=== PATIENT | female | born 1985 | race Caucasian/White ===

== ENCOUNTER 2017-06-26 10:17 | Emergency (ER) | payer OTHER ==
[~2017-06-26] VITALS: Ht 157.5 cm; Wt 55.0 kg
[~2017-06-26 10:17] MED LIST: ACYC400T PO; ATOM60 PO; BUSP5TAB3 PO; VIST25CA PO
[2017-06-26 10:20] VITALS: BP 131/72; PULSE 119; RESP 16; TEMP 98.2; O2SAT 98
[2017-06-26] MEDS ORDERED: KLON2TAB PO (10:26)
[2017-06-26] MEDS ORDERED: KETOROLAC TROMETHAMINE 60 MG/2 ML (IM) VIAL IM ONE (11:15)
[2017-06-26] MEDS ORDERED: MELO15TA20 PO (11:16)
[2017-06-26] MEDS ORDERED: CLIN300C5 PO (11:16)
--- NOTE | 2017-06-26 11:17 | PD ---
HPI Chief Complaint: Skin Problem Time Seen by Provider: 10:40 Travel History International Travel<30 days: No Contact w/Intl Traveler<30days: No Traveled to known affect area: No History of Present Illness HPI 32-year-old female here with abscess to the right chest wall since 4 days. She reports previous history of abscesses past with similar symptoms.. She denies fever or chills. She reports the area started as a small pimple-like lesion and has become larger and more red over the last several days. She denies drainage from the nipple or change in the size or shape of the breast. Symptom severity is moderate. No aggravating or alleviating factors. PFSH Past Medical History Hx Anticoagulant Therapy: No ADHD: Yes Bipolar Disorder: Yes (manic) Anxiety: Yes Cardiovascular Problems: No Diabetes: No Diminished Hearing: No Hepatitis: Yes (C) Thyroid Disease: Yes Tetanus Vaccination: Unknown ?: Not : 3 Para: 3 Past Surgical History Cholecystectomy: Yes (2010) Social History Alcohol Use: Yes (Every other day. 6 pack) Tobacco Use: Yes (/2 ppd) Substance Use: No (marijuana, benzos) Allergies-Medications (Allergen,Severity, Reaction): Coded Allergies: No Known Allergies (Unverified Adverse Reaction, Unknown, 06/26/17) Reported Meds & Prescriptions Reported Meds & Active Scripts Active Meloxicam 15 Mg Tab 15 Mg PO DAILY Clindamycin (Clindamycin HCl) 300 Mg Cap 300 Mg PO Q6H 10 Days Reported Klonopin (Clonazepam) 2 Mg Tab 2 Mg PO BID Review of Systems Except as stated in HPI: all other systems reviewed are Neg General / Constitutional: No: Fever Physical Exam Narrative GENERAL: Alert, nontoxic well-appearing female. SKIN: Warm and dry. Right breast 4 x 4 centimeters area of erythema with central fluctuance measuring 1 cm diameter. HEAD: Normocephalic. EYES: No injection or drainage. NECK: Supple, trachea midline. No JVD or lymphadenopathy. BREAST: Right breast 4 x 4 centimeters area of erythema with central fluctuance measuring 1 cm diameter. No nipple inversion or discharge. CARDIOVASCULAR: Regular rate and rhythm. Mildly tachycardic heart rate 106 RESPIRATORY: Breath sounds equal bilaterally. No accessory muscle use. GASTROINTESTINAL: Abdomen soft, non-tender, nondistended. Data Data Last Documented VS Vital Signs Date Time Temp Pulse Resp B/P (MAP) Pulse Ox O2 Delivery O2 Flow Rate FiO2 06/26/17 10:20 98.2 119 16 131/72 (91) 98 Orders Orders Ketorolac Inj (Toradol Inj) (06/26/17 11:15) [facility] Medical Decision Making Medical Screen Exam Complete: Yes Emergency Medical Condition: Yes Differential Diagnosis Abscess, cellulitis, mastitis Narrative Course 32 -year-old female here with a small right breast abscess which is superficial in nature. She is nontoxic-appearing. She is mildly tachycardic this is likely due to her pain. She is afebrile. Denies fever or chills. Incision and drainage performed. Patient tolerated procedure well. Patient we put on clindamycin and instructed to follow-up with her PCP. Return precautions were discussed. Procedures Procedure Narrative INCISION AND DRAINAGE OF ABSCESS: The area was prepped and was sterilely draped. A subcutaneous wheal of 1 % Xylocaine [with epi] with a total number [1 ] mL was used to anesthetize the area properly. A number [11] scalpel was used to make a [0.5] -cm incision across the area of the abscess. The abscess was drained, complex loculations were broken down, and irrigated with normal saline. Cultures were obtained. Quarter inch iodoform packing was placed in the wound. Sterile dressing applied. Patient advised to have packing removed in two days. Diagnosis Primary Impression: Abscess of right breast unrelated to or Referrals: Primary Care Physician Additional Instructions: The packing should be removed in 2 days. Take the antibiotics as prescribed. Follow-up the primary doctor for recheck. He developed new or worsening symptoms Scripts Meloxicam (Meloxicam) 15 Mg Tab 15 MG PO DAILY for Arthritis Pain, #30 TAB 0 Refills Prov: Beryl Calixto 06/26/17 Clindamycin (Clindamycin) 300 Mg Cap 300 MG PO Q6H for Infection for 10 Days, #40 CAP 0 Refills Prov: Beryl Calixto 06/26/17 Disposition: 01 DISCHARGE HOME Condition: Stable Beryl Calixto Jun 26, 2017 11:17
== END 2017-06-26 11:26 | disposition home or self-care (01) ==
LOC: PHEFT 10:17
DX: L02.213 Cutaneous abscess of chest wall (principal); R00.0 Tachycardia, unspecified; F90.9 Attention-deficit hyperactivity disorder, unspecified type; F31.9 Bipolar disorder, unspecified; F41.9 Anxiety disorder, unspecified; E07.9 Disorder of thyroid, unspecified; F17.200 Nicotine dependence, unspecified, uncomplicated; Z86.19 Personal history of other infectious and parasitic diseases; Z79.899 Other long term (current) drug therapy
CPT/HCPCS: 10061; 96372; 99284; J1885

== ENCOUNTER 2017-06-29 15:30 | Inpatient (IN) | payer OTHER ==
[~2017-06-29] VITALS: Ht 157.5 cm; Wt 65.1 kg
[~2017-06-29 15:30] MED LIST changes: -ACYC400T PO; -ATOM60 PO; -BUSP5TAB3 PO; +CLIN300C5 PO; +KLON2TAB PO; +MELO15TA20 PO; -VIST25CA PO
[2017-06-29 15:37] VITALS: BP 135/79; PULSE 90; RESP 16; TEMP 98.6; O2SAT 99
[2017-06-29] MEDS ORDERED: KETOROLAC TROMETHAMINE 30 MG/ML (IVP) VIAL IV PUSH ONE (17:00)
--- NOTE | 2017-06-29 17:03 | PD ---
HPI Chief Complaint: Wound/Suture/Staple Re-Check Time Seen by Provider: 16:31 Travel History International Travel<30 days: No Contact w/Intl Traveler<30days: No Traveled to known affect area: No History of Present Illness HPI 32-year-old female here with right breast abscess. She was seen and underwent incision and drainage on 06/26/17 for superficial breast abscess. Since that time she's had fever and chills. She reports increasing pain, redness, swelling of the breast. Reports compliance with the clindamycin. Symptom severity is moderate. No aggravating or alleviating factors. PFSH Past Medical History Hx Anticoagulant Therapy: No ADHD: Yes Bipolar Disorder: Yes (manic) Anxiety: Yes Cardiovascular Problems: No Diabetes: No Diminished Hearing: No Hepatitis: Yes (C) Thyroid Disease: Yes Tetanus Vaccination: Unknown ?: Not LMP: 06/01/17 : 3 Para: 3 Past Surgical History Cholecystectomy: Yes (2010) Social History Alcohol Use: Yes (Every other day. 6 pack) Tobacco Use: Yes (/2 ppd) Substance Use: No (marijuana, benzos) Allergies-Medications (Allergen,Severity, Reaction): Coded Allergies: No Known Allergies (Unverified Adverse Reaction, Unknown, 06/29/17) Reported Meds & Prescriptions Reported Meds & Active Scripts Active Clindamycin (Clindamycin HCl) 300 Mg Cap 300 Mg PO Q6H 10 Days Reported Klonopin (Clonazepam) 2 Mg Tab 2 Mg PO BID Review of Systems Except as stated in HPI: all other systems reviewed are Neg General / Constitutional: Positive: Fever, Chills Physical Exam Narrative GENERAL: Alert female and no distress. Nontoxic appearing SKIN: erythema, warmth, swelling to the right breast HEAD: Normocephalic. EYES: No scleral icterus. No injection or drainage. NECK: Supple, trachea midline. No JVD or lymphadenopathy. Breast: Notable erythema, induration, warmth, swelling to the right breast. No axillary lymphadenopathy. CARDIOVASCULAR: Regular rate and rhythm without murmurs, gallops, or rubs. RESPIRATORY: Breath sounds equal bilaterally. No accessory muscle use. GASTROINTESTINAL: Abdomen soft, non-tender, nondistended. MUSCULOSKELETAL: No cyanosis, or edema. BACK: Nontender without obvious deformity. No CVA tenderness. Data Data Last Documented VS Vital Signs Date Time Temp Pulse Resp B/P (MAP) Pulse Ox O2 Delivery O2 Flow Rate FiO2 06/29/17 18:40 90 16 136/80 (98) 100 Room Air 06/29/17 15:37 98.6 Orders Orders Basic Metabolic Panel (Bmp) (06/29/17 16:54) Complete Blood Count With Diff (06/29/17 16:54) Blood Culture (06/29/17 16:54) Wound Culture And Gram Stain (06/29/17 16:54) Iv Access Insert/Monitor (06/29/17 16:54) Us Breast Unilateral (06/29/17 ) Ketorolac Inj (Toradol Inj) (06/29/17 17:00) Ed Urine Pregnancytest Poc (06/29/17 16:58) Lactic Acid Sepsis Protocol (06/29/17 17:04) Vancomycin Inj (Vancomycin Inj) (06/29/17 20:00) Labs Laboratory Tests Test 06/29/17 18:33 White Blood Count 12.7 TH/MM3 Red Blood Count 4.32 MIL/MM3 Hemoglobin 13.3 GM/DL Hematocrit 38.7 % Mean Corpuscular Volume 89.6 FL Mean Corpuscular Hemoglobin 30.8 PG Mean Corpuscular Hemoglobin Concent 34.4 % Red Cell Distribution Width 11.9 % Platelet Count 212 TH/MM3 Mean Platelet Volume 7.9 FL Neutrophils (%) (Auto) 83.3 % Lymphocytes (%) (Auto) 12.8 % Monocytes (%) (Auto) 3.4 % Eosinophils (%) (Auto) 0.3 % Basophils (%) (Auto) 0.2 % Neutrophils # (Auto) 10.7 TH/MM3 Lymphocytes # (Auto) 1.6 TH/MM3 Monocytes # (Auto) 0.4 TH/MM3 Eosinophils # (Auto) 0.0 TH/MM3 Basophils # (Auto) 0.0 TH/MM3 CBC Comment DIFF FINAL Differential Comment Blood Urea Nitrogen 6 MG/DL Creatinine 0.59 MG/DL Random Glucose 125 MG/DL Calcium Level 8.7 MG/DL Sodium Level 139 MEQ/L Potassium Level 3.7 MEQ/L Chloride Level 106 MEQ/L Carbon Dioxide Level 25.9 MEQ/L Anion Gap 7 MEQ/L Estimat Glomerular Filtration Rate 117 ML/MIN Lactic Acid Level 1.4 mmol/L MDM Medical Decision Making Medical Screen Exam Complete: Yes Emergency Medical Condition: Yes Interpretation(s) Urine : negative CBC: WBC 12.7 BMP: Unremarkable Lactic: 1.4 Ultrasound right breast: Diffuse cellulitis small phlegmonous organizing collection although discrete abscess is not present at this time. Differential Diagnosis Oral antibiotic outpatient treatment failure, right breast abscess, right breast cellulitis Narrative Course 32-year-old female here with right breast cellulitis not responding to oral clindamycin. Reporting subjective fever and chills. IV access established, labs ordered and pending, IV vancomycin administered. Diagnosis Primary Impression: Failure of outpatient treatment Additional Impression: Cellulitis of right breast Beryl Calixto Jun 29, 2017 17:03
--- NOTE | 2017-06-29 18:19 | RADRPT ---
EXAM DATE/TIME: 06/29/2017 17:54 [facility] COMPARISON: No previous studies available for comparison. INDICATIONS : Right breast abscess. MEDICAL HISTORY : Thyroid disease. Herpes. Bipolar disorder. Substance use. Hepatitis C. SURGICAL HISTORY : Cholecystectomy. ENCOUNTER: Initial ACUITY: 4-6 days PAIN SCORE: 8/10 LOCATION: Right breast. FINDINGS: Ultrasound examination demonstrates overall diffuse soft tissue edema adjacent to area of concern. Th ere is also associated increased vascularity. There is an ill-defined hypoechoic subcutaneous collect ion at the 2: 00 position approximately 3 cm from the nipple. CONCLUSION: 1. Diffuse cellulitis with ill-defined hypoechoic subcutaneous collection at the 2: 2. 00 position approximately 3 cm from the nipple. This is consistent with a small phlegmonous organi zing collection although a discrete abscess is not present at this time. Sb Cardona MD on June 29, 2017 at 18:15 Board Certified Radiologist. This report was verified electronically.
--- NOTE | 2017-06-29 18:34 | PD ---
Physical Exam Date Seen by Provider: Jun 29, 2017 Data Data Last Documented VS Vital Signs Date Time Temp Pulse Resp B/P (MAP) Pulse Ox O2 Delivery O2 Flow Rate FiO2 06/29/17 15:37 98.6 90 16 135/79 (97) 99 Orders Orders Basic Metabolic Panel (Bmp) (06/29/17 16:54) Complete Blood Count With Diff (06/29/17 16:54) Blood Culture (06/29/17 16:54) Wound Culture And Gram Stain (06/29/17 16:54) Iv Access Insert/Monitor (06/29/17 16:54) Us Breast Unilateral (06/29/17 ) Ketorolac Inj (Toradol Inj) (06/29/17 17:00) Ed Urine Pregnancytest Poc (06/29/17 16:58) Lactic Acid Sepsis Protocol (06/29/17 17:04) Vascular Access Team Consult/P PRN (06/29/17 17:20) Vascular Poc Ultrasound (06/29/17 ) MDM Medical Record Reviewed: Yes Supervised Visit with CHENG: Yes Narrative Course I, Dr. Poe, have reviewed the advance practice practitioner's documentation and am in agreement, met with the patient face to face, made the diagnosis, and the medical decision making was done by me. *My assessment and Findings: Breast abscess with cellulitis - failed outpatient treatment. Patient will require admission for IV antibiotics. Procedures Procedure Narrative Emergency department US guided peripheral IV was performed with patient consent. Linear probe was used in the transverse views of the peripheral vein to assist with vascular access. I was able to obtain a 20-gauge IV access to the right antecubital vein Ines Poe DO Jun 29, 2017 18:34
[2017-06-29 18:40] VITALS: BP 136/80; PULSE 90; RESP 16; O2SAT 100
[2017-06-29 18:48] LABS: AUTOMATED NEUTROPHIL # 10.7 TH/MM3 (1.8-7.7); BASOPHIL % 0.2 % (0.0-2.0); EOSINOPHIL % 0.3 % (0.0-4.0); HEMATOCRIT 38.7 % (35.0-46.0); HEMOGLOBIN 13.3 GM/DL (11.6-15.3); LYMPH % 12.8 % (9.0-44.0); LYMPHOCYTE # 1.6 TH/MM3 (1.0-4.8); MEAN CELL VOLUME 89.6 FL (80.0-100.0); MEAN CORPUSCULAR HEMOGLOBIN 30.8 PG (27.0-34.0); MEAN CORPUSCULAR HGB CONC 34.4 % (32.0-36.0); MEAN PLATELET VOLUME 7.9 FL (7.0-11.0); MONO % 3.4 % (0.0-8.0); MONOCYTE # 0.4 TH/MM3 (0-0.9); NEUT % 83.3 % (16.0-70.0); PLATELET COUNT 212 TH/MM3 (150-450); RED BLOOD COUNT 4.32 MIL/MM3 (4.00-5.30); RED CELL DISTRIBUTION WIDTH 11.9 % (11.6-17.2); WHITE BLOOD COUNT 12.7 TH/MM3 (4.0-11.0)
[2017-06-29 19:10] LABS: BICARBONATE 25.9 MEQ/L (21.0-32.0); CALCIUM 8.7 MG/DL (8.5-10.1)
[2017-06-29 19:14] LABS: CREATININE 0.59 MG/DL (0.50-1.00)
[2017-06-29] MEDS ORDERED: VANCOMYCIN INJ 850 MG in SODIUM CHLOR 0.9% 250 ML INJ 250 ML IV ONE (19:15)
[2017-06-29 20:00] VITALS: BP 126/78; PULSE 83; RESP 16; TEMP 98.2; O2SAT 100
[2017-06-29] MEDS ORDERED: oxyCODONE/ACETAMINOPHEN 5 MG/325 MG TAB PO ONE (20:00)
[2017-06-29] MEDS ORDERED: VANCOMYCIN 1,000 MG/NS 250 ML IV ONE ×2 (20:00)
[2017-06-29] MEDS ORDERED: SENNOSIDES 8.6 MG TAB PO PRN (20:15)
[2017-06-29] MEDS ORDERED: BISACODYL 10 MG SUPP RECTAL PRN (20:15)
[2017-06-29] MEDS ORDERED: NALOXONE HCL 0.4 MG/ML AMP IV PUSH PRN (20:15)
[2017-06-29] MEDS ORDERED: ONDANSETRON HCL 4 MG/2 ML VIAL IVP PRN (20:15)
[2017-06-29] MEDS ORDERED: ACETAMINOPHEN 325 MG TAB PO PRN (20:15)
[2017-06-29] MEDS ORDERED: Vancomycin Consult Pharmacy 1 EA OTHER SCH (20:15)
[2017-06-29 21:05] VITALS: BP 136/75
[2017-06-29] MEDS ORDERED: diphenhydrAMINE HCL 50 MG CAP PO PRN (22:45)
[2017-06-29] MEDS: oxyCODONE/ACETAMINOPHEN 7.5 MG/325 MG TAB PO PRN (23:05)
[2017-06-29] MEDS: PIPERACIL-TAZO 3.375 GM PREMIX 50 ML IV SCH (23:05)
[2017-06-29] MEDS: SODIUM CHLORIDE 0.9% FLUSH 10 ML FLUSH IV FLUSH SCH (23:06)
[2017-06-30] VITALS: BP 122/78; PULSE 85; RESP 16; TEMP 98.2; O2SAT 99
[2017-06-30] MEDS: PIPERACIL-TAZO 3.375 GM PREMIX 50 ML IV SCH ×4 (03:02→21:13)
[2017-06-30] MEDS: oxyCODONE/ACETAMINOPHEN 7.5 MG/325 MG TAB PO PRN ×5 (03:02→21:13)
[2017-06-30] MEDS: SODIUM CHLORIDE 0.9% FLUSH 10 ML FLUSH IV FLUSH PRN ×2 (03:02→21:13)
[2017-06-30] MEDS: clonazePAM 0.5 MG TAB PO PRN ×3 (04:12→21:12)
[2017-06-30 06:37] LABS: AUTOMATED NEUTROPHIL # 5.6 TH/MM3 (1.8-7.7); BASOPHIL % 0.3 % (0.0-2.0); EOSINOPHIL # 0.1 TH/MM3 (0-0.4); EOSINOPHIL % 1.6 % (0.0-4.0); HEMOGLOBIN 12.4 GM/DL (11.6-15.3); LYMPH % 26.3 % (9.0-44.0); LYMPHOCYTE # 2.2 TH/MM3 (1.0-4.8); MEAN CELL VOLUME 89.5 FL (80.0-100.0); MEAN CORPUSCULAR HEMOGLOBIN 30.8 PG (27.0-34.0); MEAN CORPUSCULAR HGB CONC 34.4 % (32.0-36.0); MEAN PLATELET VOLUME 8.1 FL (7.0-11.0); MONO % 5.2 % (0.0-8.0); MONOCYTE # 0.4 TH/MM3 (0-0.9); NEUT % 66.6 % (16.0-70.0); PLATELET COUNT 194 TH/MM3 (150-450); RED BLOOD COUNT 4.03 MIL/MM3 (4.00-5.30); WHITE BLOOD COUNT 8.3 TH/MM3 (4.0-11.0)
[2017-06-30 06:45] LABS: CHLORIDE 107 MEQ/L (98-107); SODIUM (NA) 141 MEQ/L (136-145)
[2017-06-30 06:49] LABS: CALCIUM 8.4 MG/DL (8.5-10.1)
[2017-06-30 06:50] LABS: ALBUMIN 2.8 GM/DL (3.4-5.0); BICARBONATE 26.4 MEQ/L (21.0-32.0); BLOOD UREA NITROGEN 12 MG/DL (7-18); GLUCOSE,RANDOM 104 MG/DL (74-106)
[2017-06-30 06:53] LABS: ALT (GPT) 10 U/L (10-53); AST (GOT) 9 U/L (15-37); CREATININE 0.63 MG/DL (0.50-1.00); GLOMERULAR FILTRATION RATE 109 ML/MIN (>89)
[2017-06-30 06:54] LABS: TOTAL BILIRUBIN ADULT 0.4 MG/DL (0.2-1.0); TOTAL PROTEIN 6.5 GM/DL (6.4-8.2)
[2017-06-30 06:55] LABS: ALKALINE PHOSPHATASE 84 U/L (45-117)
[2017-06-30 08:00] VITALS: BP 120/82; PULSE 81; RESP 16; TEMP 97.6; O2SAT 100
[2017-06-30] MEDS: VANCOMYCIN 1,000 MG/NS 250 ML IV SCH ×4 (08:48→20:28)
[2017-06-30] MEDS: SODIUM CHLORIDE 0.9% FLUSH 10 ML FLUSH IV FLUSH SCH ×2 (08:49→20:28)
--- NOTE | 2017-06-30 09:59 | HHI.HP ---
[facility] No Primary Care Physician Admission Diagnosis Outpatient treatment failure, right breast cellulitis Diagnoses: (1) Cellulitis of right breast Diagnosis: Principal (2) Failure of outpatient treatment Diagnosis: Secondary Chief Complaint: Worsening breast abscess Travel History International Travel<30 Days: No Contact w/Intl Traveler <30 Da: No Traveled to Known Affected Are: No History of Present Illness Written by Divya Rivera, acting as scribe for Dr. Murrell on 06/30/17 at 09:53. Ms. Cuevas is a 32-year-old female patient with a known medical history of ADHA, anxiety, hepatitis C and history of IVDU who presented to the ED with a right breast abscess. Patient states that she underwent an I & D on 06/26/2017 for a superficial right breast abscess. Prior to her presentation to the ED she said 6 days prior she was scratched by a dog and worsened over the next several days with burning, swelling and increased amount of pus draining from site. She states she was prescribed Clindamycin and has been compliant with taking it. Despite her taking the antibiotic she has had continued subjective fever, chills generalized fatigue as well as pain, redness, swelling in the breast. Patient also does admit to some IVDU with Dilaudid, last use was 30 days ago. Review of Systems Constitutional: COMPLAINS OF: Fever Eyes: DENIES: Blurred vision, Diplopia Respiratory: DENIES: Cough, Sputum production Cardiovascular: DENIES: Chest pain Gastrointestinal: DENIES: Abdominal pain, Bloody stools, Constipation, Diarrhea , Nausea, Vomiting Integumentary: COMPLAINS OF: Breast skin changes (right breast abscess ) Past Family Social History Past Medical History ADHD Bipolar disorder Severe Anxiety Hepatitis C Thyroid disease GERD Past Surgical History Cholecystectomy Reported Medications Active Clindamycin (Clindamycin HCl) 300 Mg Cap 300 Mg PO Q6H 10 Days Reported Klonopin (Clonazepam) 2 Mg Tab 2 Mg PO BID Allergies: Coded Allergies: No Known Allergies (Unverified Adverse Reaction, Unknown, 06/29/17) Active Ordered Medications Current Medications Medications (Trade) Dose Ordered Sig/Qing Route Start Time Stop Time Status Last Admin (NS Flush) 2 ml UNSCH PRN IV FLUSH 06/29/17 20:15 06/30/17 03:02 (NS Flush) 2 ml BID IV FLUSH 06/29/17 21:00 06/30/17 08:49 (Tylenol) 650 mg Q4H PRN PO 06/29/17 20:15 (Zofran Inj) 4 mg Q6H PRN IVP 06/29/17 20:15 (Narcan Inj) 0.4 mg UNSCH PRN IV PUSH 06/29/17 20:15 (Senokot) 17.2 mg Q12H PRN PO 06/29/17 20:15 (Dulcolax Supp) 10 mg DAILY PRN RECTAL 06/29/17 20:15 Pharmacy Profile Note 0 ml @ 0 mls/hr UNSCH OTHER 06/29/17 20:15 Piperacillin Sod/ Tazobactam Sod 50 ml @ 100 mls/hr Q6H IV 06/29/17 21:00 06/30/17 08:48 Vancomycin HCl 1000 mg/Sodium Chloride 250 ml @ 250 mls/hr Q12H IV 06/30/17 08:00 06/30/17 08:48 Miscellaneous Information SPECIFIC LAB TO BE ... ONCE ONCE .XX 07/01/17 07:45 07/01/17 07:46 (Benadryl) 50 mg HS PRN PO 06/29/17 22:45 06/29/17 23:04 (Percocet 7.5-325 Mg) 1 tab Q4H PRN PO 06/29/17 22:45 06/30/17 09:01 (KlonoPIN) 0.5 mg Q6HR PRN PO 06/30/17 04:00 06/30/17 04:12 Family History Paternal medical history of cardiomyopathy. Sister thyroid disease. Social History Admits to smoking 1/2 ppd cigarettes. Admits to drinking a 6-pack every other. Does admit to IVDU Dilaudid, last use 30 days ago. Physical Exam Vital Signs Vital Signs Date Time Temp Pulse Resp B/P (MAP) Pulse Ox O2 Delivery O2 Flow Rate FiO2 06/30/17 08:00 97.6 81 16 120/82 (95) 100 06/30/17 00:00 98.2 85 16 122/78 (93) 99 06/29/17 21:05 136/75 (95) 06/29/17 20:00 98.2 83 16 126/78 (94) 100 06/29/17 18:40 90 16 136/80 (98) 100 Room Air 06/29/17 15:37 98.6 90 16 135/79 (97) 99 Physical Exam GENERAL: This is a well-nourished, well-developed female patient, in no apparent distress. SKIN: No rashes, ecchymoses. Warm and dry. Right breast abscess assessed at 2 o ' clock of areola, roughly a jordon in size, open and draining pus, erythema noted around edges. HEAD: Atraumatic. Normocephalic. EYES: Pupils equal round and reactive. Extraocular motions intact. No scleral icterus. No injection or drainage. ENT: Nose without bleeding, purulent drainage or septal hematoma. Throat without erythema, tonsillar hypertrophy or exudate. Uvula midline. Airway patent. NECK: Trachea midline. No JVD. Supple. CARDIOVASCULAR: Regular rate and rhythm without murmurs, gallops, or rubs. RESPIRATORY: Clear to auscultation. Breath sounds equal bilaterally. No wheezes , rales, or rhonchi. GASTROINTESTINAL: Abdomen soft, non-tender, nondistended. No guarding. MUSCULOSKELETAL: Extremities without clubbing, cyanosis, or edema. No joint tenderness, effusion, or edema noted. NEUROLOGICAL: Awake and alert. Cranial nerves II through XII intact. Motor and sensory grossly within normal limits. Five out of 5 muscle strength in all muscle groups. Normal speech. Laboratory Laboratory Tests Test 06/29/17 18:33 06/30/17 05:33 White Blood Count 12.7 8.3 Red Blood Count 4.32 4.03 Hemoglobin 13.3 12.4 Hematocrit 38.7 36.0 Mean Corpuscular Volume 89.6 89.5 Mean Corpuscular Hemoglobin 30.8 30.8 Mean Corpuscular Hemoglobin Concent 34.4 34.4 Red Cell Distribution Width 11.9 12.0 Platelet Count 212 194 Mean Platelet Volume 7.9 8.1 Neutrophils (%) (Auto) 83.3 66.6 Lymphocytes (%) (Auto) 12.8 26.3 Monocytes (%) (Auto) 3.4 5.2 Eosinophils (%) (Auto) 0.3 1.6 Basophils (%) (Auto) 0.2 0.3 Neutrophils # (Auto) 10.7 5.6 Lymphocytes # (Auto) 1.6 2.2 Monocytes # (Auto) 0.4 0.4 Eosinophils # (Auto) 0.0 0.1 Basophils # (Auto) 0.0 0.0 CBC Comment DIFF FINAL DIFF FINAL Differential Comment Blood Urea Nitrogen 6 12 Creatinine 0.59 0.63 Random Glucose 125 104 Calcium Level 8.7 8.4 Sodium Level 139 141 Potassium Level 3.7 3.6 Chloride Level 106 107 Carbon Dioxide Level 25.9 26.4 Anion Gap 7 8 Estimat Glomerular Filtration Rate 117 109 Lactic Acid Level 1.4 Total Protein 6.5 Albumin 2.8 Alkaline Phosphatase 84 Aspartate Amino Transf (AST/SGOT) 9 Alanine Aminotransferase (ALT/SGPT) 10 Total Bilirubin 0.4 Date/Time Source Procedure Growth Status 06/29/17 18:33 Blood Peripheral Aerobic Blood Culture Pending Received 06/29/17 18:33 Blood Peripheral Anaerobic Blood Culture Pending Received 06/29/17 17:20 Wound Breast Gram Stain - Final Resulted 06/29/17 17:20 Wound Breast Wound Culture Pending Resulted Result Diagram: 06/30/17 0533 06/30/17 0533 Imaging Last Impressions Breast Ultrasound 06/29/17 0000 Signed Impressions: Service Date/Time: Thursday, June 29, 2017 17:54 - CONCLUSION: 1. Diffuse cellulitis with ill-defined hypoechoic subcutaneous collection at the 2 : 2. 00 position approximately 3 cm from the nipple. This is consistent with a small phlegmonous organizing collection although a discrete abscess is not present at this time. Sb Cardona MD Septic Shock Reassessment Septic shock perfusion: reassessment completed Caprini VTE Risk Assessment Caprini VTE Risk Assessment: No/Low Risk (score <= 1) Caprini Risk Assessment Model Point Value = 1 Point Value = 2 Point Value = 3 Point Value = 5 Age 41-60 Minor surgery BMI > 25 kg/m2 Swollen legs Varicose veins or History of unexplained or recurrent spontaneous Oral contraceptives or hormone replacement Sepsis (< 1 month) Serious lung disease, including pneumonia (< 1 month) Abnormal pulmonary function Acute myocardial infarction Congestive heart failure (< 1 month) History of inflammatory bowel disease Medical patient at bed rest Age 61-74 Arthroscopic surgery Major open surgery (> 45 min) Laparoscopic surgery (> 45 min) Malignancy Confined to bed (> 72 hours) Immobilizing plaster cast Central venous access Age >= 75 History of VTE Family history of VTE Factor V Leiden Prothrombin [id number] Lupus anticoagulant Anticardiolipin antibodies Elevated serum homocysteine Heparin-induced thrombocytopenia Other congenital or acquired thrombophilia Stroke (< 1 month) Elective arthroplasty Hip, pelvis, or leg fracture Acute spinal cord injury (< 1 month) Prophylaxis Regimen Total Risk Factor Score Risk Level Prophylaxis Regimen 0-1 Low Early ambulation 2 Moderate Order ONE of the following: *Sequential Compression Device (SCD) *Heparin 5000 units SQ BID 3-4 Higher Order ONE of the following medications: *Heparin 5000 units SQ TID *Enoxaparin/Lovenox 40 mg SQ daily (WT < 150 kg, CrCl > 30 mL/min) *Enoxaparin/Lovenox 30 mg SQ daily (WT < 150 kg, CrCl > 10-29 mL/min) *Enoxaparin/Lovenox 30 mg SQ BID (WT < 150 kg, CrCl > 30 mL/min) AND/OR *Sequential Compression Device (SCD) 5 or more Highest Order ONE of the following medications: *Heparin 5000 units SQ TID (Preferred with Epidurals) *Enoxaparin/Lovenox 40 mg SQ daily (WT < 150 kg, CrCl > 30 mL/min) *Enoxaparin/Lovenox 30 mg SQ daily (WT < 150 kg, CrCl > 10-29 mL/min) *Enoxaparin/Lovenox 30 mg SQ BID (WT < 150 kg, CrCl > 30 mL/min) AND *Sequential Compression Device (SCD) Assessment and Plan Problem List: (1) Failure of outpatient treatment ICD Code: Z78.9 - Other specified health status Status: Acute (2) Cellulitis of right breast ICD Code: N61.0 - Mastitis without abscess Status: Acute Plan: GI Prophylaxis: Protonix. DVT Prophylaxis: SCDs. (3) Tobacco abuse ICD Code: Z72.0 - Tobacco use Assessment and Plan Ms. Cuevas is a 32-year-old female patient with a known medical history of ADHA, anxiety, hepatitis C and history of IVDU who presented to the ED with a right breast abscess. Cellulitis of right breast wound Failure of outpatient therapy Patient has been taking Clindamycin PO in the outpatient setting with continued worsening of right breast wound. Breast ultrasound reviewed showing diffuse cellulitis with ill-defined hypoechoic subcutaneous collection at the 2 o'clock position approximately 3 cm from the nipple. Small phlegmonous collection although a discrete abscess is not present at the time. Patient is afebrile. Monitor for infection. WBC WNL. CBC and BMP reviewed which are essentially unremarkable. Control pain, Percocet available PRN per pain scale. Started on IV Zosyn and IV Vancomycin. Lactic acid WNL. Blood cultures drawn, no growth to date, continue to follow Wound culture obtained and pending. Follow. Supportive Care. Chronic anxiety: Continue home Klonopin. Tobacco abuse: Encouraged cessation. History of IVDU: Counselled on cessation. DVT Prophylaxis: SCDs. This note was transcribed by CELESTINA Byrd. I, Dr. Dona Murrell personally performed the history, physical exam, and medical decision making; and confirmed the accuracy of the information in the transcribed note. Authenticated by Dr. Dona Murrell on 06/30/17 at 09:53. Physician Certification 2 Midnight Certification Type: Admission for Inpatient Services Order for Inpatient Services The services are ordered in accordance with Medicare regulations or non- Medicare payer requirements, as applicable. In the case of services not specified as inpatient-only, they are appropriately provided as inpatient services in accordance with the 2-midnight benchmark. Estimated LOS (days): 3 3 days is the estimated time the patient will need to remain in the hospital, assuming treatment plan goals are met and no additional complications. Post-Hospital Plan: Home Divya Rivera Jun 30, 2017 09:59 Dona Murrell MD Jun 30, 2017 14:20
[2017-06-30 12:00] VITALS: BP 112/64; PULSE 88; RESP 18; TEMP 98; O2SAT 100
[2017-06-30] MEDS: FAMOTIDINE 20 MG TAB PO SCH ×2 (14:45→20:28)
[2017-06-30 16:00] VITALS: BP 115/70; PULSE 85; RESP 16; TEMP 98.2; O2SAT 100
[2017-06-30 20:00] VITALS: BP 136/85; PULSE 83; RESP 16; TEMP 98.1; O2SAT 99
[2017-07-01] VITALS: BP 120/72; PULSE 70; RESP 18; TEMP 97.5; O2SAT 99
[2017-07-01] MEDS: oxyCODONE/ACETAMINOPHEN 7.5 MG/325 MG TAB PO PRN ×3 (01:04→11:05)
[2017-07-01] MEDS: PIPERACIL-TAZO 3.375 GM PREMIX 50 ML IV SCH ×3 (03:07→18:00)
[2017-07-01] MEDS: SODIUM CHLORIDE 0.9% FLUSH 10 ML FLUSH IV FLUSH PRN (03:07)
[2017-07-01] MEDS ORDERED: PHARMACY ORDERED LAB ONE (07:45)
[2017-07-01 08:00] VITALS: BP 116/78; PULSE 83; RESP 14; TEMP 98.2; O2SAT 100
[2017-07-01 08:13] LABS: AUTOMATED NEUTROPHIL # 4.9 TH/MM3 (1.8-7.7); BASOPHIL % 0.2 % (0.0-2.0); EOSINOPHIL # 0.2 TH/MM3 (0-0.4); EOSINOPHIL % 2.3 % (0.0-4.0); HEMATOCRIT 33.3 % (35.0-46.0); HEMOGLOBIN 11.2 GM/DL (11.6-15.3); LYMPH % 25.1 % (9.0-44.0); LYMPHOCYTE # 1.8 TH/MM3 (1.0-4.8); MEAN CELL VOLUME 89.1 FL (80.0-100.0); MEAN CORPUSCULAR HEMOGLOBIN 29.9 PG (27.0-34.0); MEAN CORPUSCULAR HGB CONC 33.5 % (32.0-36.0); MONO % 5.2 % (0.0-8.0); MONOCYTE # 0.4 TH/MM3 (0-0.9); NEUT % 67.2 % (16.0-70.0); PLATELET COUNT 192 TH/MM3 (150-450); RED BLOOD COUNT 3.74 MIL/MM3 (4.00-5.30); WHITE BLOOD COUNT 7.3 TH/MM3 (4.0-11.0)
--- NOTE | 2017-07-01 08:43 | HHI.PR ---
Subjective Remarks Erythema and edema improving a little bit . No fever or chills. There is discharge coming out from the right breast wound. Has pain, fairly controlled by medications. However she is asking for more pain medications. Objective Vitals Vital Signs Date Time Temp Pulse Resp B/P (MAP) Pulse Ox O2 Delivery O2 Flow Rate FiO2 07/01/17 00:00 97.5 70 18 120/72 (88) 99 06/30/17 20:00 98.1 83 16 136/85 (102) 99 06/30/17 16:00 98.2 85 16 115/70 (85) 100 06/30/17 12:00 98.0 88 18 112/64 (80) 100 I/O 06/30/17 06/30/17 06/30/17 07/01/17 07/01/17 07/01/17 07:00 15:00 23:00 07:00 15:00 23:00 Intake Total 580 ml 1380 ml 700 ml Balance 580 ml 1380 ml 700 ml Intake Oral 480 ml 1080 ml 650 ml IV Total 100 ml 300 ml 50 ml # Voids 1 4 2 # Bowel Movements 0 0 Result Diagram: 07/01/17 0730 06/30/17 0533 Imaging Last Impressions Breast Ultrasound 06/29/17 0000 Signed Impressions: Service Date/Time: Thursday, June 29, 2017 17:54 - CONCLUSION: 1. Diffuse cellulitis with ill-defined hypoechoic subcutaneous collection at the 2 : 2. 00 position approximately 3 cm from the nipple. This is consistent with a small phlegmonous organizing collection although a discrete abscess is not present at this time. Sb Cardona MD Objective Remarks GENERAL: This is a well-nourished, well-developed female patient, in no apparent distress. SKIN: No rashes, ecchymoses. Warm and dry. Right breast abscess assessed at 2 o ' clock of areola, roughly a jordon in size, open and draining pus, erythema noted around edges. CARDIOVASCULAR: Regular rate and rhythm without murmurs, gallops, or rubs. RESPIRATORY: Clear to auscultation. Breath sounds equal bilaterally. No wheezes , rales, or rhonchi. GASTROINTESTINAL: Abdomen soft, non-tender, nondistended. No guarding. MUSCULOSKELETAL: Extremities without clubbing, cyanosis, or edema. No joint tenderness, effusion, or edema noted. NEUROLOGICAL: Awake and alert. Cranial nerves II through XII intact. Motor and sensory grossly within normal limits. Five out of 5 muscle strength in all muscle groups. Normal speech. A/P Problem List: (1) Failure of outpatient treatment ICD Code: Z78.9 - Other specified health status Status: Acute (2) Cellulitis of right breast ICD Code: N61.0 - Mastitis without abscess Status: Acute (3) Tobacco abuse ICD Code: Z72.0 - Tobacco use Assessment and Plan Ms. Cuevas is a 32-year-old female patient with a known medical history of ADHA, anxiety, hepatitis C and history of IVDU who presented to the ED with a right breast abscess. Cellulitis of right breast wound Failure of outpatient therapy Patient has been taking Clindamycin PO in the outpatient setting with continued worsening of right breast wound. Breast ultrasound reviewed showing diffuse cellulitis with ill-defined hypoechoic subcutaneous collection at the 2 o'clock position approximately 3 cm from the nipple. Small phlegmonous collection although a discrete abscess is not present at the time. Patient is afebrile. Monitor for infection. WBC WNL. CBC and BMP reviewed which are essentially unremarkable. Control pain, Percocet available PRN per pain scale. Started on IV Zosyn and IV Vancomycin. Lactic acid WNL. Blood cultures drawn, no growth to date, continue to follow Wound culture obtained and pending. Follow. Supportive Care. Chronic anxiety: Continue home Klonopin. Tobacco abuse: Encouraged cessation. History of IVDU: Counselled on cessation. DVT Prophylaxis: SCDs. Discussed with the patient, nurse. DC when improves . Possible discharge tomorrow cultures negative and erythema and edema improves. Dona Murrell MD Jul 01, 2017 08:43
[2017-07-01] MEDS: SODIUM CHLORIDE 0.9% FLUSH 10 ML FLUSH IV FLUSH SCH ×2 (08:54→21:50)
[2017-07-01] MEDS: FAMOTIDINE 20 MG TAB PO SCH ×2 (08:54→21:48)
[2017-07-01] MEDS: clonazePAM 0.5 MG TAB PO PRN ×3 (08:54→18:27)
[2017-07-01 12:00] VITALS: BP 121/72; PULSE 80; RESP 14; TEMP 97; O2SAT 99
[2017-07-01] MEDS: VANCOMYCIN INJ 1,200 MG in SODIUM CHLOR 0.9% 250 ML INJ 250 ML IV SCH (12:36)
[2017-07-01 16:00] VITALS: PULSE 77; RESP 12; TEMP 97.2; O2SAT 99
[2017-07-01] MEDS: ACETAMINOPHEN/HYDROcodone 325 MG/7.5 MG TAB PO PRN ×2 (18:26→22:52)
[2017-07-01 20:00] VITALS: BP 137/85; PULSE 79; RESP 20; TEMP 97.1; O2SAT 99
[2017-07-01] MEDS ORDERED: VANCOMYCIN INJ 1,200 MG in SODIUM CHLOR 0.9% 250 ML INJ 250 ML IV SCH (20:00)
[2017-07-02] VITALS: BP 132/75; PULSE 72; RESP 20; TEMP 97.2; O2SAT 99
[2017-07-02] MEDS: PIPERACIL-TAZO 3.375 GM PREMIX 50 ML IV SCH ×3 (00:09→11:34)
[2017-07-02] MEDS: SODIUM CHLORIDE 0.9% FLUSH 10 ML FLUSH IV FLUSH PRN ×3 (00:10→06:32)
[2017-07-02] MEDS: clonazePAM 0.5 MG TAB PO PRN ×2 (00:10→09:10)
[2017-07-02] MEDS: VANCOMYCIN INJ 1,200 MG in SODIUM CHLOR 0.9% 250 ML INJ 250 ML IV SCH ×2 (00:49→12:43)
[2017-07-02] MEDS: ACETAMINOPHEN/HYDROcodone 325 MG/7.5 MG TAB PO PRN ×3 (02:49→11:34)
[2017-07-02 07:50] VITALS: BP 122/74; PULSE 100; RESP 20; TEMP 97.3; O2SAT 99
[2017-07-02] MEDS: SODIUM CHLORIDE 0.9% FLUSH 10 ML FLUSH IV FLUSH SCH (09:07)
[2017-07-02] MEDS: FAMOTIDINE 20 MG TAB PO SCH (09:07)
[2017-07-02 11:50] VITALS: BP 122/95; PULSE 68; RESP 20; TEMP 98.2; O2SAT 99
[2017-07-02 12:34] VITALS: RESP 18
[2017-07-02] MEDS ORDERED: PERC7.5T13 PO (13:40)
[2017-07-02] MEDS ORDERED: CEFU1TAB18 PO (13:41)
[2017-07-02] MEDS ORDERED: LACTCHW3 CHEW (13:41)
[2017-07-02] MEDS ORDERED: SENN187 PO (13:41)
--- NOTE | 2017-07-02 13:43 | HHI.DS ---
Discharge Summary Admission Date Jun 29, 2017 at 19:40 Discharge Date: Jul 02, 2017 Admitting Diagnosis Outpatient treatment failure, right breast cellulitis (1) Failure of outpatient treatment ICD Code: Z78.9 - Other specified health status Status: Acute (2) Cellulitis of right breast ICD Code: N61.0 - Mastitis without abscess Status: Acute (3) Tobacco abuse ICD Code: Z72.0 - Tobacco use Procedures None Brief History - From Admission Written by Divya Rivera, acting as scribe for Dr. Murrell on 06/30/17 at 09:53. Ms. Cuevas is a 32-year-old female patient with a known medical history of ADHA, anxiety, hepatitis C and history of IVDU who presented to the ED with a right breast abscess. Patient states that she underwent an I & D on 06/26/2017 for a superficial right breast abscess. Prior to her presentation to the ED she said 6 days prior she was scratched by a dog and worsened over the next several days with burning, swelling and increased amount of pus draining from site. She states she was prescribed Clindamycin and has been compliant with taking it. Despite her taking the antibiotic she has had continued subjective fever, chills generalized fatigue as well as pain, redness, swelling in the breast. Patient also does admit to some IVDU with Dilaudid, last use was 30 days ago. CBC/BMP: 07/01/17 0730 06/30/17 0533 Significant Findings Laboratory Tests Test 06/29/17 18:33 06/30/17 05:33 07/01/17 07:30 White Blood Count 12.7 TH/MM3 (4.0-11.0) Neutrophils (%) (Auto) 83.3 % (16.0-70.0) Neutrophils # (Auto) 10.7 TH/MM3 (1.8-7.7) Blood Urea Nitrogen 6 MG/DL (7-18) Random Glucose 125 MG/DL (74-106) Albumin 2.8 GM/DL (3.4-5.0) Calcium Level 8.4 MG/DL (8.5-10.1) Aspartate Amino Transf (AST/SGOT) 9 U/L (15-37) Red Blood Count 3.74 MIL/MM3 (4.00-5.30) Hemoglobin 11.2 GM/DL (11.6-15.3) Hematocrit 33.3 % (35.0-46.0) Imaging Last Impressions Breast Ultrasound 06/29/17 0000 Signed Impressions: Service Date/Time: Thursday, June 29, 2017 17:54 - CONCLUSION: 1. Diffuse cellulitis with ill-defined hypoechoic subcutaneous collection at the 2 : 2. 00 position approximately 3 cm from the nipple. This is consistent with a small phlegmonous organizing collection although a discrete abscess is not present at this time. Sb Cardona MD PE at Discharge GENERAL: This is a well-nourished, well-developed female patient, in no apparent distress. SKIN: No rashes, ecchymoses. Warm and dry. Right breast abscess assessed at 2 o ' clock of areola, roughly a jordon in size, open and draining pus, erythema noted around edges. CARDIOVASCULAR: Regular rate and rhythm without murmurs, gallops, or rubs. RESPIRATORY: Clear to auscultation. Breath sounds equal bilaterally. No wheezes , rales, or rhonchi. GASTROINTESTINAL: Abdomen soft, non-tender, nondistended. No guarding. MUSCULOSKELETAL: Extremities without clubbing, cyanosis, or edema. No joint tenderness, effusion, or edema noted. NEUROLOGICAL: Awake and alert. Cranial nerves II through XII intact. Motor and sensory grossly within normal limits. Five out of 5 muscle strength in all muscle groups. Normal speech. Pt update on day of discharge Feels much better, no fever or chills. No nausea vomiting diarrhea or constipation. Last discharge from the breast. Erythema and edema improved significantly. Hospital Course Ms. Cuevas is a 32-year-old female patient with a known medical history of ADHA, anxiety, hepatitis C and history of IVDU who presented to the ED with a right breast abscess. Cellulitis of right breast wound Failure of outpatient therapy Patient has been taking Clindamycin PO in the outpatient setting with continued worsening of right breast wound. Breast ultrasound reviewed showing diffuse cellulitis with ill-defined hypoechoic subcutaneous collection at the 2 o'clock position approximately 3 cm from the nipple. Small phlegmonous collection although a discrete abscess is not present at the time. Patient is afebrile. Monitor for infection. WBC WNL. CBC and BMP reviewed which are essentially unremarkable. Control pain, Percocet available PRN per pain scale. Started on IV Zosyn and IV Vancomycin. Discharged on Ceftin po. Wound cultures with Haemophilus parainfluenza. Lactic acid WNL. Blood cultures drawn, no growth to date, continue to follow Supportive Care. Chronic anxiety: Continue home Klonopin. Tobacco abuse: Encouraged cessation. History of IVDU: Counselled on cessation. DVT Prophylaxis: SCDs. Improved, less discharge from breast, no fever or chills. Discharged home in stable condition to follow-up as outpatient with his consultants. Pt Condition on Discharge: Stable Discharge Disposition: Discharge Home Discharge Time: > 30 minutes Discharge Instructions DIET: Follow Instructions for: As Tolerated, No Restrictions Activities you can perform: Regular-No Restrictions Follow up Referrals: PCP Follow-up - 2-3 Days New Medications: Cefuroxime (Ceftin) 250 Mg Tab 250 MG PO BID for INFECTION, #24 TAB Fluconazole (Fluconazole) 100 Mg Tab 100 MG PO ONCE for Infection, #3 TAB 0 Refills Lactobacillus Acidophilus (Lactinex) 1 Chew 1 TAB CHEW BID for Nutritional Supplement, #60 TAB 0 Refills Oxycodone-Acetaminophen (Percocet) 7.5-325 mg Tab 1 TAB PO Q6H PRN for PAIN, #20 TAB 0 Refills Sennosides (Senna-Lax) 8.6 Mg Tab 17.2 MG PO Q12H PRN for Moderate constipation, #60 TAB Continued Medications: Clonazepam (Klonopin) 2 Mg Tab 2 MG PO BID, #60 TAB 0 Refills Discontinued Medications: Clindamycin (Clindamycin) 300 Mg Cap 300 MG PO Q6H for Infection for 10 Days, #40 CAP 0 Refills Dona Murrell MD Jul 02, 2017 13:43
[2017-07-02] MEDS ORDERED: FLUC100T2 PO (15:34)
[2017-07-03] MEDS ORDERED: VANCOMYCIN TROUGH ONE ×2 (00:45→07:45)
== END 2017-07-02 15:45 | disposition home or self-care (01) | DRG 601 ==
LOC: PHEFT 15:30 → PHEDA 19:40 → PH3B 21:04
PROVIDERS: ADMIT Hospitalist; ATTEND Hospitalist
PROC: 05HY33Z Insertion of Infusion Device into Upper Vein, Percutaneous Approach (ICD-10-PCS; principal; 2017-06-29)
DX: N61.0 Mastitis without abscess (principal); B19.20 Unspecified viral hepatitis C without hepatic coma; F31.9 Bipolar disorder, unspecified; F17.210 Nicotine dependence, cigarettes, uncomplicated; F41.9 Anxiety disorder, unspecified; F90.9 Attention-deficit hyperactivity disorder, unspecified type; E07.9 Disorder of thyroid, unspecified; K21.9 Gastro-esophageal reflux disease without esophagitis
CPT/HCPCS: 76642; 76937; 80048; 80053; 80202; 83605; 84443; 84703; 85025; 87040; 87070; 87077; 87185; 87205; 96374; J1885; J2405; J2543; J3370; J7050; Q0163

== ENCOUNTER 2017-11-12 13:06 | Emergency (ER) | payer OTHER ==
[~2017-11-12] VITALS: Ht 157.5 cm; Wt 55.0 kg
[~2017-11-12 13:06] MED LIST changes: +CEFU1TAB18 PO; -CLIN300C5 PO; +FLUC100T2 PO; +LACTCHW3 CHEW; -MELO15TA20 PO; +PERC7.5T13 PO; +SENN187 PO
[2017-11-12] MEDS ORDERED: IOHEXOL 350 MG/ML 10 ML VIAL (for RAD DIAG) IVCONTRAST ONE (13:07)
[2017-11-12 13:17] VITALS: BP 116/74; PULSE 100; RESP 18; TEMP 98.4; O2SAT 99
[2017-11-12] MEDS ORDERED: SODIUM CHLOR 0.9% 1000 ML INJ 1,000 ML IV SCH (13:38)
[2017-11-12] MEDS ORDERED: SODIUM CHLORIDE 0.9% FLUSH 10 ML FLUSH IV FLUSH PRN (13:45)
[2017-11-12] MEDS ORDERED: KETOROLAC TROMETHAMINE 30 MG/ML (IVP) VIAL IVP ONE (13:45)
--- NOTE | 2017-11-12 13:46 | PD ---
HPI Chief Complaint: Skin Problem Time Seen by Provider: 13:34 Travel History International Travel<30 days: No Contact w/Intl Traveler<30days: No Traveled to known affect area: No History of Present Illness HPI 32-year-old female with history of IV drug use presents emergency department with painful erythematous abscess developing on the left lower neck just above the clavicle. She admits to injecting Dilaudid approximately 1 week ago with secondary infection noted. Patient denies fever, chills, or other symptoms. She denies difficulty swallowing. Pain is localized to the left medial clavicle/lower anterior neck. Patient states it is worsened since yesterday. Patient has history of abscesses in the past from similar activity. Pain is currently 8 out of 10. History of MRSA. Patient has been treated in the past with dowel dance. PFSH Past Medical History Hx Anticoagulant Therapy: No ADHD: Yes Arthritis: Yes Bipolar Disorder: Yes (manic) Anxiety: Yes Depression: Yes Cancer: No Cardiovascular Problems: No Diabetes: No Diminished Hearing: No Endocrine: Yes Genitourinary: No Hepatitis: Yes (C) Immune Disorder: No Musculoskeletal: Yes Neurologic: No Psychiatric: Yes Reproductive: No Respiratory: No Thyroid Disease: Yes ?: Not : 3 Para: 3 Past Surgical History Abdominal Surgery: Yes (lap choli) Cardiac Surgery: No Cholecystectomy: Yes (2010) Ear Surgery: No Endocrine Surgery: No Eye Surgery: No Genitourinary Surgery: No Gynecologic Surgery: No Oral Surgery: No Thoracic Surgery: No Other Surgery: Yes (gallbladder removed.) Social History Alcohol Use: Yes (Every other day. 6 pack PATIENT DENIES 11/18) Tobacco Use: Yes (/2 ppd) Substance Use: Yes (marijuana, benzos PATIENT DENIES 11/18) Allergies-Medications (Allergen,Severity, Reaction): Coded Allergies: No Known Allergies (Unverified Adverse Reaction, Unknown, 06/29/17) Reported Meds & Prescriptions Reported Meds & Active Scripts Active Fluconazole 100 Mg Tab 100 Mg PO ONCE Lactinex (Lactobacillus Acidophilus) 1 Chew 1 Tab CHEW BID Ceftin (Cefuroxime Axetil) 250 Mg Tab 250 Mg PO BID Senna-Lax (Sennosides) 8.6 Mg Tab 17.2 Mg PO Q12H PRN Percocet (Oxycodone-Acetaminophen) 7.5-325 mg Tab 1 Tab PO Q6H PRN Reported Klonopin (Clonazepam) 2 Mg Tab 2 Mg PO BID Review of Systems Except as stated in HPI: all other systems reviewed are Neg General / Constitutional: No: Fever, Chills Eyes: No: Visual changes HENT: No: Headaches Cardiovascular: No: Chest Pain or Discomfort Respiratory: No: Shortness of Breath Gastrointestinal: No: Abdominal Pain Genitourinary: No: Dysuria Musculoskeletal: No: Pain Skin: Positive Lesions (See history of present illness), No Rash Neurologic: No: Weakness Psychiatric: No: Depression Endocrine: No: Polydipsia Hematologic/Lymphatic: No: Easy Bruising Physical Exam Narrative GENERAL: Patient appears in no obvious distress. SKIN: Warm and dry. Normal color. Normal turgor. Patient has a walnut-sized erythematous tender area on the medial upper clavicular region consistent with patient's history. No pointing. HEAD: Atraumatic. Normocephalic. EYES: Pupils equal and round. No scleral icterus. No injection or drainage. ENT: No nasal bleeding or discharge. Mucous membranes pink and moist. Pharynx is clear. Airways patent NECK: Trachea midline. Supple and nontender without significant lymphadenopathy CARDIOVASCULAR: Regular rate and rhythm. No murmurs gallops or rubs appreciated. RESPIRATORY: No accessory muscle use. Clear to auscultation. Breath sounds equal bilaterally. MUSCULOSKELETAL: Extremities without clubbing, cyanosis, or edema. No obvious deformities. NEUROLOGICAL: Awake and alert. No obvious cranial nerve deficits. Motor grossly within normal limits. Five out of 5 muscle strength in the arms and legs. Normal speech. PSYCHIATRIC: Appropriate mood and affect; insight and judgment normal. Data Data Last Documented VS Vital Signs Date Time Temp Pulse Resp B/P (MAP) Pulse Ox O2 Delivery O2 Flow Rate FiO2 11/12/17 13:17 98.4 100 18 116/74 (88) 99 Orders Orders Complete Blood Count With Diff (11/12/17 13:38) Comprehensive Metabolic Panel (11/12/17 13:38) Lactic Acid (11/12/17 13:38) Prothrombin Time / Inr (Pt) (11/12/17 13:38) Act Partial Throm Time (Ptt) (11/12/17 13:38) Iv Access Insert/Monitor (11/12/17 13:38) Ecg Monitoring (11/12/17 13:38) Oximetry (11/12/17 13:38) Sodium Chlor 0.9% 1000 Ml Inj (Ns 1000 M (11/12/17 13:38) Sodium Chloride 0.9% Flush (Ns Flush) (11/12/17 13:45) Chest, Single Ap (11/12/17 13:38) Ketorolac Inj (Toradol Inj) (11/12/17 13:45) Ct Soft Tiss Neck W Iv Cont (11/12/17 13:38) Blood Culture (11/12/17 13:38) Iohexol 350 Inj (Omnipaque 350 Inj) (11/12/17 13:07) Ketorolac Inj (Toradol Inj) (11/12/17 16:15) Hepatic Functional Panel (11/12/17 16:11) Consult Infectious Disease (11/12/17 ) Case Management Consult (11/12/17 ) Asp:No Reaction To Dalbav/Vanc (Asp Crit (11/12/17 16:15) Asp: Does Not Meet Inpt Admit (Asp Crit: (11/12/17 16:15) Asp: Iv Antibiotics Admit Only (Asp Crit (11/12/17 16:15) Asp: Location Of Dalbav Admin (Asp Crit: (11/12/17 16:15) Pharmacy Information ([facility] Pharmacy Info (11/12/17 16:15) Dalbavancin Inj (Dalvance Inj) (11/12/17 16:11) (Hub Use Only)Inp Phy Cons/Ref (11/12/17 ) Morphine Inj (Morphine Inj) (11/12/17 16:45) Acetaminophen (Tylenol) (11/12/17 18:00) Ed Discharge Order (11/12/17 18:14) Labs Laboratory Tests Test 11/12/17 14:30 11/12/17 14:35 Lactic Acid Level 1.0 mmol/L White Blood Count 7.6 TH/MM3 Red Blood Count 4.47 MIL/MM3 Hemoglobin 14.1 GM/DL Hematocrit 40.6 % Mean Corpuscular Volume 90.7 FL Mean Corpuscular Hemoglobin 31.5 PG Mean Corpuscular Hemoglobin Concent 34.7 % Red Cell Distribution Width 12.5 % Platelet Count 204 TH/MM3 Mean Platelet Volume 7.4 FL Neutrophils (%) (Auto) 76.4 % Lymphocytes (%) (Auto) 17.0 % Monocytes (%) (Auto) 4.9 % Eosinophils (%) (Auto) 1.4 % Basophils (%) (Auto) 0.3 % Neutrophils # (Auto) 5.8 TH/MM3 Lymphocytes # (Auto) 1.3 TH/MM3 Monocytes # (Auto) 0.4 TH/MM3 Eosinophils # (Auto) 0.1 TH/MM3 Basophils # (Auto) 0.0 TH/MM3 CBC Comment DIFF FINAL Differential Comment Prothrombin Time 10.4 SEC Prothromb Time International Ratio 1.0 RATIO Activated Partial Thromboplast Time 31.6 SEC Blood Urea Nitrogen 9 MG/DL Creatinine 0.61 MG/DL Random Glucose 82 MG/DL Total Protein 7.5 GM/DL Albumin 3.3 GM/DL Calcium Level 8.4 MG/DL Alkaline Phosphatase 82 U/L Aspartate Amino Transf (AST/SGOT) 13 U/L Alanine Aminotransferase (ALT/SGPT) 11 U/L Total Bilirubin 0.2 MG/DL Sodium Level 140 MEQ/L Potassium Level 3.6 MEQ/L Chloride Level 103 MEQ/L Carbon Dioxide Level 29.2 MEQ/L Anion Gap 8 MEQ/L Estimat Glomerular Filtration Rate 113 ML/MIN Direct Bilirubin 0.1 MG/DL Indirect Bilirubin 0.1 MG/DL MDM Medical Decision Making Medical Screen Exam Complete: Yes Emergency Medical Condition: Yes Medical Record Reviewed: Yes Differential Diagnosis IV drug use. Phlebitis. Cellulitis. Abscess. Narrative Course Patient appears medically stable at time of exam. Labs ordered including CBC, CMP, lactic acid, coagulation studies, blood cultures 2 Chest x-ray is ordered. CT of the soft tissues of the neck is ordered with IV contrast IV access is obtained. CBC is unremarkable. Coagulation studies are normal. CMP is unremarkable except for calcium of 8.4, AST is 13, and albumin is 3.3. Lactic acid is normal at 1.0 Chest x-ray is unremarkable for acute process. CT of the soft tissues of the neck shows: FINDINGS: There is soft tissue induration and minimal enhancement without defined abscess sitting just above the left clavicle, lateral to the carotid artery space and jugular vein. probably from an attempted injection. This sits immediately adjacent to the left clavicle without osteomyelitis or defined abscess. Patient is ordered Dalvance 1500 mg IV. Patient was given Toradol 30 mg IV. Patient given 4 mg morphine IV. Patient will be referred to her primary care physician for follow-up. Recommend patient follow-up with [facility] regarding her IV drug use. Diagnosis Primary Impression: Cellulitis Qualified Codes: L03.313 - Cellulitis of chest wall Additional Impression: IV drug user Referrals: Primary Care Physician [facility] Patient Instructions: Cellulitis (ED), Dalbavancin (By injection), General Instructions Additional Instructions: CBC is unremarkable. Coagulation studies are normal. CMP is unremarkable except for calcium of 8.4, AST is 13, and albumin is 3.3. Lactic acid is normal at 1.0 Chest x-ray is unremarkable for acute process. CT of the soft tissues of the neck shows: FINDINGS: There is soft tissue induration and minimal enhancement without defined abscess sitting just above the left clavicle, lateral to the carotid artery space and jugular vein. probably from an attempted injection. This sits immediately adjacent to the left clavicle without osteomyelitis or defined abscess. Patient is ordered Dalvance 1500 mg IV. Patient was given Toradol 30 mg IV. Patient given 4 mg morphine IV. Patient will be referred to her primary care physician for follow-up. Recommend patient follow-up with [facility] regarding her IV drug use. Med/Other Pt SpecificInfo: No Meds Exist/No RX given Disposition: 01 DISCHARGE HOME Condition: Stable Terrence Carrera November 12, 2017 13:46
--- NOTE | 2017-11-12 14:11 | RADRPT ---
EXAM DATE/TIME: 11/12/2017 13:52 [facility] COMPARISON: No previous studies available for comparison. INDICATIONS : Free air. MEDICAL HISTORY : Thyroid disease. Herpes. Bipolar disorder. Substance use. Hepatitis C. SURGICAL HISTORY : Cholecystectomy. ENCOUNTER: Initial ACUITY: 1 day PAIN SCORE: 0/10 LOCATION: Bilateral chest FINDINGS: A single view of the chest demonstrates the lungs to be symmetrically aerated without evidence of mas s, infiltrate or effusion. The cardiomediastinal contours are unremarkable. Osseous structures are intact. CONCLUSION: No acute disease. Tom Woodward MD FACR on November 12, 2017 at 14:09 Board Certified Radiologist. This report was verified electronically.
[2017-11-12 15:03] LABS: AUTOMATED NEUTROPHIL # 5.8 TH/MM3 (1.8-7.7); BASOPHIL % 0.3 % (0.0-2.0); EOSINOPHIL # 0.1 TH/MM3 (0-0.4); EOSINOPHIL % 1.4 % (0.0-4.0); HEMATOCRIT 40.6 % (35.0-46.0); HEMOGLOBIN 14.1 GM/DL (11.6-15.3); LYMPHOCYTE # 1.3 TH/MM3 (1.0-4.8); MEAN CELL VOLUME 90.7 FL (80.0-100.0); MEAN CORPUSCULAR HEMOGLOBIN 31.5 PG (27.0-34.0); MEAN CORPUSCULAR HGB CONC 34.7 % (32.0-36.0); MEAN PLATELET VOLUME 7.4 FL (7.0-11.0); MONO % 4.9 % (0.0-8.0); MONOCYTE # 0.4 TH/MM3 (0-0.9); NEUT % 76.4 % (16.0-70.0); PLATELET COUNT 204 TH/MM3 (150-450); RED BLOOD COUNT 4.47 MIL/MM3 (4.00-5.30); RED CELL DISTRIBUTION WIDTH 12.5 % (11.6-17.2); WHITE BLOOD COUNT 7.6 TH/MM3 (4.0-11.0)
[2017-11-12 15:33] LABS: ALBUMIN 3.3 GM/DL (3.4-5.0); ALT (GPT) 11 U/L (10-53); AST (GOT) 13 U/L (15-37); BICARBONATE 29.2 MEQ/L (21.0-32.0); BLOOD UREA NITROGEN 9 MG/DL (7-18); CALCIUM 8.4 MG/DL (8.5-10.1); CHLORIDE 103 MEQ/L (98-107); CREATININE 0.61 MG/DL (0.50-1.00); GLOMERULAR FILTRATION RATE 113 ML/MIN (>89); GLUCOSE,RANDOM 82 MG/DL (74-106); PROTHROMBIN TIME - PATIENT 10.4 SEC (9.8-11.6); SODIUM (NA) 140 MEQ/L (136-145)
[2017-11-12 15:34] LABS: ALKALINE PHOSPHATASE 82 U/L (45-117); TOTAL BILIRUBIN ADULT 0.2 MG/DL (0.2-1.0); TOTAL PROTEIN 7.5 GM/DL (6.4-8.2)
--- NOTE | 2017-11-12 15:59 | RADRPT ---
EXAM DATE/TIME: 11/12/2017 15:21 [facility] COMPARISON: No previous studies available for comparison. INDICATIONS : Abscess on left side of neck ,pain IV CONTRAST: 66 cc Omnipaque 350 (iohexol) IV RADIATION DOSE: 15.61 CTDIvol (mGy) MEDICAL HISTORY : Hepatitis C. SURGICAL HISTORY : Cholecystectomy. ENCOUNTER: Initial ACUITY: 2 days PAIN SCALE: 5/10 LOCATION: Left neck TECHNIQUE: Volumetric scanning of the neck was performed. Using automated exposure control and adjustment of th e mA and/or kV according to patient size, radiation dose was kept as low as reasonably achievable to obtain optimal diagnostic quality images. DICOM format image data is available electronically for r eview and comparison. FINDINGS: There is soft tissue induration and minimal enhancement without defined abscess sitting just above th e left clavicle, lateral to the carotid artery space and jugular vein. probably from an attempted inj ection. This sits immediately adjacent to the left clavicle without osteomyelitis or defined abscess . CONCLUSION: Soft tissue induration without deep space abscess lower anterior left neck. Tom Woodward MD FACR on November 12, 2017 at 15:55 Board Certified Radiologist. This report was verified electronically.
[2017-11-12] MEDS ORDERED: DALBAVANCIN INJ 1,500 MG in DEXTROSE 5% IN WATE 500 ML INJ 500 ML IV STA ×2 (16:11)
[2017-11-12] MEDS ORDERED: ASP: Does not meet inpatient admission criteria OTHER ONE (16:15)
[2017-11-12] MEDS ORDERED: PHARMACY INFORMATION XX ONE (16:15)
[2017-11-12] MEDS ORDERED: ASP: Only reason for admit - IV antibiotics OTHER ONE (16:15)
[2017-11-12] MEDS ORDERED: ASP: Location of Dalbavancin administration OTHER ONE (16:15)
[2017-11-12] MEDS ORDERED: ASP: No known hypersensitivity to Vanco, Telavancin, Dalbavancin OTHER ONE (16:15)
[2017-11-12] MEDS ORDERED: KETOROLAC TROMETHAMINE 60 MG/2 ML (IM) VIAL IM ONE (16:15)
[2017-11-12] MEDS ORDERED: MORPHINE SULFATE 4 MG/ML INJ IV PUSH ONE (16:45)
[2017-11-12 17:27] LABS: TOTAL BILIRUBIN ADULT 0.2 MG/DL (0.2-1.0); TOTAL PROTEIN 7.4 GM/DL (6.4-8.2)
[2017-11-12 17:29] LABS: ALBUMIN 3.3 GM/DL (3.4-5.0); DIRECT BILIRUBIN ADULT 0.1 MG/DL (0.0-0.2); INDIRECT BILIRUBIN 0.1 MG/DL (0.0-0.8)
[2017-11-12] MEDS ORDERED: ACETAMINOPHEN 500 MG CPLT PO ONE (18:00)
== END 2017-11-12 18:19 | disposition home or self-care (01) ==
LOC: NEPE 13:06
DX: L03.313 Cellulitis of chest wall (principal); F19.90 Other psychoactive substance use, unspecified, uncomplicated; F31.89 Other bipolar disorder; E07.9 Disorder of thyroid, unspecified; B19.20 Unspecified viral hepatitis C without hepatic coma; F41.8 Other specified anxiety disorders; F17.210 Nicotine dependence, cigarettes, uncomplicated; F12.90 Cannabis use, unspecified, uncomplicated; Z86.14 Personal history of Methicillin resistant Staphylococcus aureus infection
CPT/HCPCS: 70491; 71045; 80053; 83605; 85025; 85610; 85730; 87040; 96374; 96375; 99285; J0875; J1885; J2270; J7030; J7060; Q9967; 80076

== ENCOUNTER 2017-11-14 13:18 | Emergency (ER) | payer OTHER ==
[~2017-11-14] VITALS: Ht 156.2 cm; Wt 55.9 kg
[2017-11-14 13:19] VITALS: BP 132/73; PULSE 90; RESP 16; TEMP 98.2; O2SAT 99
[2017-11-14] MEDS ORDERED: XANA1TAB2 PO (13:45)
[2017-11-14] MEDS ORDERED: LEXA5TAB PO (13:45)
[2017-11-14] MEDS ORDERED: SOMA350T PO (13:45)
[2017-11-14] MEDS ORDERED: ADDE20 PO (13:45)
[2017-11-14] MEDS ORDERED: ACYC400T PO (13:49)
[2017-11-14] MEDS ORDERED: KETOROLAC TROMETHAMINE 60 MG/2 ML (IM) VIAL IM ONE (14:00)
--- NOTE | 2017-11-14 14:07 | PD ---
HPI Chief Complaint: Skin Problem Time Seen by Provider: 13:44 Travel History International Travel<30 days: No Contact w/Intl Traveler<30days: No Traveled to known affect area: No History of Present Illness HPI 32yo F with PMH of IVDA presents to the ED for evaluation of her infection on left neck. Pt was just evaluated 2 days ago at [facility] ED and had labs, CXR and CT soft tissue neck. CXR was negative and CT soft tissue neck showed induration and minimal enhancement without defined abscess just above left clavicle. Pt said she thinks the redness has actually gone down and is itchy and just wants to get it check again and make sure its ok. Pt was given davlance. Denies any fever, chest pain, sob, n/v, abdominal pain, focal weakness or numbness. PFSH Past Medical History Hx Anticoagulant Therapy: No ADHD: Yes Arthritis: Yes Bipolar Disorder: Yes (manic) Anxiety: Yes Depression: Yes Cancer: No Cardiovascular Problems: No Diabetes: No Diminished Hearing: No Endocrine: Yes Genitourinary: No Hepatitis: Yes (C) Immune Disorder: No Musculoskeletal: Yes Neurologic: No Psychiatric: Yes Reproductive: No Respiratory: No Thyroid Disease: Yes Tetanus Vaccination: > 5 Years Influenza Vaccination: No ?: Not LMP: ENDED 2 DAYS AGO : 3 Para: 3 Past Surgical History Abdominal Surgery: Yes (lap choli) Cardiac Surgery: No Cholecystectomy: Yes (2010) Ear Surgery: No Endocrine Surgery: No Eye Surgery: No Genitourinary Surgery: No Gynecologic Surgery: No Oral Surgery: No Thoracic Surgery: No Other Surgery: Yes (gallbladder removed.) Social History Alcohol Use: Yes (Every other day. 6 pack PATIENT DENIES 11/14) Tobacco Use: Yes (2 ppd) Substance Use: Yes (marijuana, benzos PATIENT DENIES 11/14) Allergies-Medications (Allergen,Severity, Reaction): Coded Allergies: No Known Allergies (Unverified Adverse Reaction, Unknown, 11/14/17) Reported Meds & Prescriptions Reported Meds & Active Scripts Active Lactinex (Lactobacillus Acidophilus) 1 Chew 1 Tab CHEW BID Reported Acyclovir 400 Mg Tab 500 Mg PO DAILY PRN Soma (Carisoprodol) 350 Mg Tab 350 Mg PO DAILY PRN Xanax (Alprazolam) 1 Mg Tab 1 Mg PO DAILY PRN Lexapro (Escitalopram Oxalate) 5 Mg Tab 5 Mg PO DAILY Adderall (Amphetamine-Dextroamphetamine) 20 Mg Tab 20 Mg PO DAILY Avoid late evening doses. Space doses at least 4 to 6 hours if more than once/day dosing. Klonopin (Clonazepam) 2 Mg Tab 2 Mg PO BID Review of Systems Except as stated in HPI: all other systems reviewed are Neg Physical Exam Narrative GENERAL: 32yo F not in distress. SKIN:+Induration above medial left clavicle with surrounding erythema about 13cm by 6cm. No fluctuance. HEAD: Atraumatic. Normocephalic. EYES: Pupils equal and round. No scleral icterus. No injection or drainage. ENT: No nasal bleeding or discharge. Mucous membranes pink and moist. NECK: Trachea midline. No JVD. CARDIOVASCULAR: Regular rate and rhythm. No murmur appreciated. RESPIRATORY: No accessory muscle use. Clear to auscultation. Breath sounds equal bilaterally. GASTROINTESTINAL: Abdomen soft, non-tender, nondistended. Hepatic and splenic margins not palpable. MUSCULOSKELETAL: No obvious deformities. No clubbing. No cyanosis. No edema. NEUROLOGICAL: Awake and alert. No obvious cranial nerve deficits. Motor grossly within normal limits. Normal speech. PSYCHIATRIC: Appropriate mood and affect; insight and judgment normal. Data Data Last Documented VS Vital Signs Date Time Temp Pulse Resp B/P (MAP) Pulse Ox O2 Delivery O2 Flow Rate FiO2 11/14/17 13:19 98.2 90 16 132/73 (92) 99 Orders Orders Ketorolac Inj (Toradol Inj) (11/14/17 14:00) Diphenhydramine (Benadryl) (11/14/17 14:30) [facility] Medical Decision Making Medical Screen Exam Complete: Yes Emergency Medical Condition: Yes Differential Diagnosis Cellulitis vs. abscess Narrative Course 32yo F with left neck infection. Pt was just evaluated 2 days ago with no abscess seen on CT scan and given dalvance. Pt has normal vital signs and no systemic symptoms. She is well appearing and also refusing any blood work or imaging. She just want to make sure it's ok. Denies any new trauma or injection. Border of cellulitis is marked and instructed pt to return to the ED if symptoms worsen. Pt already covered with dalvance and requesting pain medication. Pt given diphenhydramine for itching and toradol for pain which helped. Return precautions given. Diagnosis Primary Impression: Cellulitis Qualified Codes: L03.221 - Cellulitis of neck Patient Instructions: General Instructions Departure Forms: Tests/Procedures Additional Instructions: Please follow up with your primary care physician in 2-3 days. Return to the ED if symptoms worsen. Med/Other Pt SpecificInfo: Prescription(s) given Scripts Diphenhydramine (Diphenhydramine) 25 Mg Cap 25 MG PO Q6H Y for ITCHING for 5 Days, #20 CAP 0 Refills Prov: Cande Hampton DO 11/14/17 Ibuprofen (Ibuprofen) 600 Mg Tab 600 MG PO Q8HR Y for PAIN, #20 TAB 0 Refills Prov: Cande Hampton DO 11/14/17 Disposition: 01 DISCHARGE HOME Condition: Stable Cande Hampton DO November 14, 2017 14:07
[2017-11-14] MEDS ORDERED: diphenhydrAMINE HCL 50 MG CAP PO ONE (14:30)
[2017-11-14 15:00] VITALS: BP 128/72; PULSE 82; RESP 16; O2SAT 99
[2017-11-14] MEDS ORDERED: DIPH25CA PO (15:03)
[2017-11-14] MEDS ORDERED: IBUP-232 PO (15:03)
[2017-11-14 15:07] VITALS: RESP 16
== END 2017-11-14 15:58 | disposition home or self-care (01) ==
LOC: PHED 13:18
DX: L03.221 Cellulitis of neck (principal); F90.9 Attention-deficit hyperactivity disorder, unspecified type; F31.9 Bipolar disorder, unspecified; F41.9 Anxiety disorder, unspecified; E07.9 Disorder of thyroid, unspecified; F17.200 Nicotine dependence, unspecified, uncomplicated; F12.90 Cannabis use, unspecified, uncomplicated; Z79.899 Other long term (current) drug therapy; Z86.19 Personal history of other infectious and parasitic diseases
CPT/HCPCS: 96372; 99283; J1885; Q0163